=== PATIENT | male | born 1995 | race Caucasian/White ===

== ENCOUNTER 2018-03-08 13:48 | Emergency (ER) | payer BC ==
[~2018-03-08] VITALS: Ht 172.7 cm; Wt 67.0 kg
[2018-03-08 13:51] VITALS: BP 128/86
--- NOTE | 2018-03-08 14:32 | NUR ---
EKG 1355
== END 2018-03-08 15:17 | disposition home or self-care (01) ==
LOC: ER 13:49
DX: R50.9 Fever, unspecified (principal); R42 Dizziness and giddiness; R05 Cough; R07.89 Other chest pain
CPT/HCPCS: 93005; 99283

== ENCOUNTER 2018-07-03 16:43 | Outpatient (CLI) | payer OTHER | END 2018-07-03 23:59 | disposition home or self-care (01) | LOC: RAD 16:43 | PROVIDERS: ATTEND Chiropractor | DX: M62.830 Muscle spasm of back (principal) | CPT/HCPCS: 72100 ==

== ENCOUNTER → 2020-10-22 | Outpatient (CLI) | payer OTHER | END | disposition home or self-care (01) | LOC: ER 11:35 | PROVIDERS: ATTEND Internal Medicine Infectious Disease | DX: Z00.00 Encounter for general adult medical examination without abnormal findings (principal) ==

== ENCOUNTER 2021-03-11 12:17 | Outpatient (CLI) | payer BC | END 2021-03-11 23:59 | disposition home or self-care (01) | LOC: LAB 12:17 | PROVIDERS: ATTEND Family Medicine | DX: Z11.3 Encounter for screening for infections with a predominantly sexual mode of transmission (principal) | CPT/HCPCS: 36415; 86695; 86696 ==

== ENCOUNTER 2021-04-23 12:26 | Emergency (ER) | payer OTHER ==
[~2021-04-23] VITALS: Ht 172.7 cm; Wt 70.0 kg
[2021-04-23 12:35] VITALS: BP 133/94
[2021-04-23] MEDS ORDERED: diazepam 5mg tablet PO ONE (14:10)
[2021-04-23] MEDS ORDERED: acetaminophen 325mg tablet PO ONE (14:10)
[2021-04-23] MEDS ORDERED: DIAZ5TAB22 PO ×2 (14:16→14:17)
== END 2021-04-23 14:31 | disposition home or self-care (01) ==
LOC: EEVIPCON 12:27 → ER 12:27
DX: M54.89 Other dorsalgia (principal); M62.838 Other muscle spasm; Z79.899 Other long term (current) drug therapy
CPT/HCPCS: 99283

== ENCOUNTER 2021-10-21 08:25 | Emergency (ER) | payer OTHER ==
[~2021-10-21] VITALS: Ht 172.7 cm; Wt 68.2 kg
[2021-10-21 08:44] VITALS: BP 128/86
[2021-10-21] MEDS ORDERED: CYCL-1 PO (09:25)
== END 2021-10-21 09:37 | disposition home or self-care (01) ==
LOC: EEVIPCON 08:26 → ER 08:26
DX: M25.519 Pain in unspecified shoulder (principal); M54.9 Dorsalgia, unspecified; G89.29 Other chronic pain
CPT/HCPCS: 99283

== ENCOUNTER 2022-09-14 08:15 | Emergency (ER) | payer BC, OTHER ==
[~2022-09-14] VITALS: Ht 172.7 cm; Wt 65.0 kg
[~2022-09-14 08:15] MED LIST: CYCL-1 PO
[2022-09-14] MEDS ORDERED: normal saline 1000ml 1,000 ML IV ONE (08:35)
[2022-09-14] MEDS ORDERED: ampicillin inj 2 GM in normal saline 100ml IV soln 100 ML IV SCH (08:35)
[2022-09-14] MEDS ORDERED: gentamicin in saline, iso-osm 80 MG/50 ML premix IV ONE ×2 (08:35→08:40)
[2022-09-14] MEDS ORDERED: TETanus/Pertussis (Acell)/Diphther VAC/PF (Tdap-Adult) 0.5ml syringe IMVAC ONE (08:40)
[2022-09-14] MEDS ORDERED: ondansetron/PF 4mg/2ml inj IV ONE (08:40)
[2022-09-14] MEDS ORDERED: morphine 4 MG/ML inj SYRINge IV ONE ×3 (08:40→12:00)
[2022-09-14] MEDS ORDERED: ceFAZolin/D5W- 1GM premix 50 ML IV ONE (08:45)
[2022-09-14] MEDS ORDERED: ampicillin inj 2 GM in normal saline 100ml IV soln 100 ML IV ONE (08:48)
[2022-09-14] MEDS ORDERED: gentamicin inj 80 MG in normal saline 100ml IV soln 98 ML IV ONE (08:55)
[2022-09-14 09:13] LABS: BASOPHILS % (AUTO) 0.9 % (0-1); EOSINOPHILS # (AUTO) 0.1 X10'3 (0-0.9); EOSINOPHILS % (AUTO) 1.6 % (0-6); HEMATOCRIT 45.5 % (42.0-52.0); HEMOGLOBIN 15.6 g/dl (14.0-17.9); LYMPHOCYTES % (AUTO) 39.1 % (21-51); MEAN CORPUSCULAR HEMOGLOBIN 30.8 PG (27.0-31.0); MEAN CORPUSCULAR HGB CONC 34.3 g/dL (33.0-36.5); MEAN CORPUSCULAR VOLUME 89.9 FL (78-98); MEAN PLATELET VOLUME 6.9 FL (7.4-10.4); MONOCYTES # (AUTO) 0.5 X10'3 (0-0.9); MONOCYTES % (AUTO) 10.3 % (2-12); NEUTROPHILS # (AUTO) 2.5 X10'3 (1.8-7.7); NEUTROPHILS % (AUTO) 48.1 % (42-75); PLATELET COUNT 292 X10'3 (140-440); RED BLOOD COUNT 5.07 X10'6 (4.70-6.10); RED CELL DISTRIBUTION WIDTH 13.3 % (11.5-14.5); WHITE BLOOD COUNT 5.2 X10'3 (4.5-11.0)
[2022-09-14 09:27] LABS: APTT 26 SECONDS (22-32)
[2022-09-14 09:29] LABS: ALANINE AMINOTRANSFERASE 158 U/L (12-78); ALBUMIN/GLOBULIN RATIO 1.2 (1.1-1.5); ALKALINE PHOSPHATASE 66 IU/L (46-116); ANION GAP 12 (8-16); ASPARTATE AMINO TRANSFERASE 90 U/L (10-37); BILIRUBIN,TOTAL 0.4 MG/DL (0.1-1.0); BLOOD UREA NITROGEN 16 MG/DL (7-18); BUN/CREATININE RATIO 18.6 (10.0-20.0); CALCIUM 8.7 MG/DL (8.5-10.1); CHLORIDE 105 MMOL/L (99-107); CREATININE 0.86 MG/DL (0.60-1.10); GLUCOSE 113 MG/DL (70-104); SODIUM 142 MMOL/L (135-145); TOTAL CARBON DIOXIDE 25.4 MMOL/L (24-32); TOTAL PROTEIN 7.3 G/DL (6.4-8.2); eGFR > 90 ML/MIN
[2022-09-14] MEDS ORDERED: OXYC-145 PO (12:33)
[2022-09-14] MEDS ORDERED: AMOX-117 PO (12:36)
[2022-09-14] MEDS ORDERED: HYDROcodone/acetaminophen 5mg/325mg tablet PO ONE (13:10)
[2022-09-14 13:15] VITALS: BP 118/74; PULSE 84; RESP 16; TEMP 97.9; O2SAT 99
[2022-09-14] MEDS ORDERED: ONDA4TAB12 PO ×2 (19:17)
[2022-09-21] MEDS ORDERED: PER5325T PO (14:56)
[2022-09-21] MEDS ORDERED: AMOX-580 PO (14:56)
== END 2022-09-14 13:16 | disposition home or self-care (01) ==
LOC: ER 08:16
DX: S61.412A Laceration without foreign body of left hand, initial encounter (principal); G89.29 Other chronic pain; M54.9 Dorsalgia, unspecified; Z79.899 Other long term (current) drug therapy; W29.3XXA Contact with powered garden and outdoor hand tools and machinery, initial encounter; Y93.89 Activity, other specified; Y92.89 Other specified places as the place of occurrence of the external cause; Y99.8 Other external cause status
CPT/HCPCS: 12002; 36415; 73130; 80053; 85025; 85610; 85730; 87040; 90471; 90715; 96365; 96368; 96375; 96376; 99284; A6223; J0290; J0690; J1580; J2270; J2405; J3490; J7030; 96361; A6258; A6446; A6449

== ENCOUNTER 2022-09-14 17:40 | Emergency (ER) | payer BC ==
[~2022-09-14] VITALS: Ht 172.7 cm; Wt 65.9 kg
[~2022-09-14 17:40] MED LIST changes: +AMOX-117 PO; +OXYC-145 PO
[2022-09-14 17:56] VITALS: TEMP 98.3
[2022-09-14] MEDS ORDERED: ondansetron 4mg rapidly disintigrating tab PO ONE (19:15)
[2022-09-14] MEDS ORDERED: oxyCODONE/APAP 5-325mg tablet PO ONE (19:15)
[2022-09-14] MEDS ORDERED: ONDA4TAB12 PO ×2 (19:17)
[2022-09-14 20:22] VITALS: BP 139/93; PULSE 81; RESP 16; O2SAT 99
[2022-09-21] MEDS ORDERED: PER5325T PO (14:56)
[2022-09-21] MEDS ORDERED: AMOX-580 PO (14:56)
== END 2022-09-14 20:26 | disposition home or self-care (01) ==
LOC: ER 17:42
DX: S61.412D Laceration without foreign body of left hand, subsequent encounter (principal); G89.29 Other chronic pain; M54.9 Dorsalgia, unspecified; X58.XXXD Exposure to other specified factors, subsequent encounter
CPT/HCPCS: 99284; A6222; A6449

== ENCOUNTER 2022-09-22 05:32 | Day surgery (SDC) | payer BC ==
[2022-09-21 14:24] LABS: BASOPHILS % (AUTO) 0.5 % (0-1); EOSINOPHILS # (AUTO) 0.1 X10'3 (0-0.9); EOSINOPHILS % (AUTO) 1.8 % (0-6); LYMPHOCYTES # (AUTO) 2.4 X10'3 (1.1-4.8); LYMPHOCYTES % (AUTO) 35.9 % (21-51); MEAN CORPUSCULAR HEMOGLOBIN 30.8 PG (27.0-31.0); MEAN CORPUSCULAR HGB CONC 34.6 g/dL (33.0-36.5); MEAN PLATELET VOLUME 6.5 FL (7.4-10.4); MONOCYTES # (AUTO) 0.5 X10'3 (0-0.9); MONOCYTES % (AUTO) 7.6 % (2-12); NEUTROPHILS # (AUTO) 3.6 X10'3 (1.8-7.7); NEUTROPHILS % (AUTO) 54.2 % (42-75); PRE OP HEMATOCRIT 41.8 % (42.0-52.0); PRE OP HEMOGLOBIN 14.5 g/dL (14.0-17.9); PRE OP PLATELET COUNT 332 X10'3 (140-440)
[~2022-09-22] VITALS: Ht 172.7 cm; Wt 69.8 kg
[2022-09-22] VITALS (12 sets, daily range): BP systolic 122–137; BP diastolic 82–97; PULSE 62–76; RESP 11–16; TEMP 98; O2SAT 97–100
[~2022-09-22 05:32] MED LIST changes: -AMOX-117 PO; +AMOX-580 PO; -CYCL-1 PO; -OXYC-145 PO; +PER5325T PO; +cefazolin 2gm/D5W 100mL 100 ML IV ONE; +famotidine 20mg tablet PO ONE; +ringers solution, lacted 1,000 ML IV SCH
[2022-09-22] MEDS ORDERED: BUPIVAcaine/PF 2.5mg/ml (0.25%) 10ml vial ONE (06:54)
[2022-09-22] MEDS ORDERED: LIDOcaine 1% 30ml preserv. free vial ONE (07:30)
[2022-09-22] MEDS ORDERED: MIDAZolam 1 MG/ML 5ML VIAL ONE (07:39)
[2022-09-22] MEDS ORDERED: fentaNYL/PF 50MCG/1 ML 2ML syringe ONE (07:39)
[2022-09-22] MEDS ORDERED: propofol inj 20 ML IV ONE (07:52)
[2022-09-22] MEDS ORDERED: LIDOcaine 1%/PF 5ML 10 MG/ML VIAL ONE (08:14)
--- NOTE | 2022-09-22 08:42 | NUR ---
Received from OR via [facility] TO RR 6, accompanied by Anesthesiologist DR THOMAS and report given by Anesthesiolgist. PT PRESENTS WITH PIV 20G RIGHT HAND, LR RUNNING AT 100MLS/HR, LEFT HAND DRESSING CDI, VSS. Addendum: 09/22/22 at 0849 by Sierra Rocha RN, RN Amended: Links added.
[2022-09-22] MEDS ORDERED: oxyCODONE/APAP 5-325mg tablet PO ONE (09:00)
--- NOTE | 2022-09-22 10:12 | NUR ---
ABLE TO SAFELY AMBULATE AND TRANSFER SELF. IV TAKEN OUT WITHOUT ANY COMPLICATIONS. ALL DISCHARGE INSTRUCTIONS COVERED WITH PATIENT AND ALL QUESTIONS ANSWERED. PATIENT TAKEN OUT VIA WHEELCHAIR TO PERSONAL VEHICLE WHERE FAMILY/FRIEND DROVE PATIENT HOME. Addendum: 09/22/22 at 1025 by Sierra Rocha RN, RN Amended: Links added.
== END 2022-09-22 10:12 | disposition home or self-care (01) ==
LOC: PAS 05:32
PROVIDERS: ATTEND Orthopaedic Surgery Hand Surgery
DX: S66.222A Laceration of extensor muscle, fascia and tendon of left thumb at wrist and hand level, initial encounter (principal); F10.91 Alcohol use, unspecified, in remission; Z79.899 Other long term (current) drug therapy; W31.2XXA Contact with powered woodworking and forming machines, initial encounter; Y93.89 Activity, other specified; Y92.008 Other place in unspecified non-institutional (private) residence as the place of occurrence of the external cause; Y99.8 Other external cause status
CPT/HCPCS: 26418; 36415; 82948; 85025; J0690; J2250; J2704; J3010; J3490; J7030; J7120; Z7506; Z7508; Z7512; A4215; A4618; A7000

== ENCOUNTER 2023-03-30 09:43 | Emergency (ER) | payer BC ==
[~2023-03-30] VITALS: Ht 172.7 cm; Wt 66.8 kg
[~2023-03-30 09:43] MED LIST changes: -cefazolin 2gm/D5W 100mL 100 ML IV ONE; -famotidine 20mg tablet PO ONE; -ringers solution, lacted 1,000 ML IV SCH
[2023-03-30 11:44] LABS: STREP A SCREEN NEGATIVE (Neg)
[2023-03-30 13:07] VITALS: BP 141/87; PULSE 88; RESP 17; TEMP 97.9; O2SAT 99
== END 2023-03-30 13:08 | disposition home or self-care (01) ==
LOC: ER 09:43
DX: B34.9 Viral infection, unspecified (principal); Z20.822 Contact with and (suspected) exposure to COVID-19; G89.29 Other chronic pain; M54.50 Low back pain, unspecified; Z79.899 Other long term (current) drug therapy
CPT/HCPCS: 36415; 71045; 87081; 87502; 87503; 87634; 87811; 87880; 99284